=== PATIENT | male | born 1950 | race Caucasian/White ===

== ENCOUNTER 2021-08-28 06:48 | Inpatient (IN) ==
[~2021-08-28 06:48] MED LIST: VANCOMYCIN INJ 500 MG in SODIUM CHLORIDE 0.9% 100 ML IV ONE
[2021-08-28] MEDS ORDERED: VANCOMYCIN INJ 1,000 MG in SODIUM CHLORIDE 0.9% 250 ML IV ONE (07:54)
[2021-08-28] MEDS ORDERED: LACTATED RINGERS 1,000 ML IV SCH (08:00)
[2021-08-28] MEDS ORDERED: ETOMIDATE 40 MG/20 ML VIAL IV ONE (09:22)
[2021-08-28] MEDS ORDERED: MIDAZOLAM 2 MG/2 ML VIAL ONE (09:22)
[2021-08-28] MEDS ORDERED: propofoL 200 MG/20 ML VIAL IV ONE (09:22)
[2021-08-28] MEDS ORDERED: PHENYLEPHRINE 1 MG/10 ML SYRINGE IV ONE (09:22)
[2021-08-28] MEDS ORDERED: LIDOCAINE 2% 5 ML VIAL ONE ×2 (09:22→09:29)
[2021-08-28] MEDS ORDERED: SEVOFLURANE 1 UNIT/15 MINUTE INH ONE (09:22)
[2021-08-28] MEDS ORDERED: fentaNYL 100 MCG/2 ML VIAL ONE (09:22)
[2021-08-28] MEDS ORDERED: HEPARIN 5,000 UNIT/1 ML VIAL ONE (09:25)
[2021-08-28] MEDS ORDERED: HEPARIN/NACL 0.9% 2 UNITS/ML 1,000 UNIT/500 ML BAG IV ONE (09:29)
[2021-08-28] MEDS ORDERED: DEXAMETHASONE 4 MG/1 ML VIAL ONE (09:29)
[2021-08-28] MEDS ORDERED: ROPIVACAINE 0.5% 30 ML VIAL ONE (09:29)
[2021-08-28] MEDS ORDERED: PHENYLEPHRINE DRIP 20 MG/250 ML PREMIX IV ONE (09:29)
[2021-08-28] MEDS ORDERED: NITROGLYCERIN DRIP 50 MG/250 ML BOTTLE IV ONE (09:29)
[2021-08-28] MEDS ORDERED: SUGAMMADEX 200 MG/2 ML VIAL IV ONE (11:20)
[2021-08-28] MEDS ORDERED: HEPARIN 10,000 UNIT/10 ML VIAL ONE (11:20)
[2021-08-28] MEDS ORDERED: ONDANSETRON 4 MG/2 ML VIAL IV PRN (11:42)
[2021-08-28] MEDS ORDERED: oxyCODONE/ACETAMINOPHEN 5-325 MG TABLET PO PRN ×2 (11:42)
[2021-08-28] MEDS ORDERED: NALOXONE 0.4 MG/ML VIAL IV PRN (11:42)
[2021-08-28] MEDS ORDERED: PROMETHAZINE 25 MG/1 ML VIAL IM PRN (11:42)
[2021-08-28] MEDS ORDERED: HYDROmorphone 1 MG/1 ML SYRINGE IV PRN ×2 (11:42)
[2021-08-28] MEDS ORDERED: hydrALAZINE 20 MG/1 ML VIAL ONE (11:56)
[2021-08-28] MEDS ORDERED: PHENYLEPHRINE DRIP 40 MG/250 ML PREMIX IV SCH (12:00)
[2021-08-28] MEDS ORDERED: DEXTROSE 10% 250 ML BAG IV PRN (12:41)
[2021-08-28] MEDS ORDERED: ZALEPLON 5 MG CAPSULE PO PRN (12:45)
[2021-08-28 12:55] VITALS: BP 148/66
[2021-08-28] MEDS: LACTATED RINGERS 1,000 ML IV SCH ×2 (13:23→22:56)
[2021-08-28] MEDS: NITROPRUSSIDE 100 MG in DEXTROSE 5% 250 ML IV SCH ×2 (13:40→16:15)
[2021-08-28] MEDS ORDERED: NITROGLYCERIN DRIP 50 MG/250 ML BOTTLE IV PRN (15:56)
[2021-08-28] MEDS: amLODIPine 2.5 MG TABLET PO SCH (20:36)
[2021-08-29] MEDS ORDERED: LISINOPRIL/HCTZ 20-12.5 MG TABLET PO SCH (00:30)
[2021-08-29] MEDS: amLODIPine 2.5 MG TABLET PO SCH (08:02)
[2021-08-29] MEDS ORDERED: ASPIRIN EC 81 MG TABLET PO SCH ×2 (09:00)
[2021-08-29] MEDS ORDERED: TAMSULOSIN 0.4 MG CAPSULE PO SCH (09:00)
[2021-08-29] MEDS ORDERED: ASCORBIC ACID 500 MG TABLET PO SCH (09:00)
[2021-08-29] MEDS ORDERED: APIXABAN 5 MG TABLET PO SCH (09:00)
[2021-08-29] MEDS ORDERED: ROSUVASTATIN 20 MG TABLET PO SCH (09:00)
[2021-08-29 09:51] LABS: Calcium 9.4 MG/DL (8.5-10.1); Potassium 4.4 MMOL/L (3.5-5.1)
== END 2021-08-29 13:03 | disposition home or self-care (01) | DRG 39 ==
LOC: N.ICU 06:48 → N.SDSINP 07:31 → N.ICU 12:40
PROVIDERS: ADMIT Surgery; ATTEND Surgery